=== PATIENT | female | born 1985 | race Caucasian/White ===

== ENCOUNTER 2024-09-24 09:29 | Emergency (ER) | payer BC, SELFPAY ==
[2024-09-24 09:45] VITALS: BP 127/91
[2024-09-24 10:22] VITALS: BMI 23.0
[2024-09-24 10:32] LABS: Urine Albumin Negative (Neg - Trace); Urine Bilirubin Negative (Negative); Urine Character Clear (Clear); Urine Color Yellow; Urine Glucose Negative (Negative); Urine Ketone Negative (Negative); Urine Leukocyte Trace (Negative); Urine Nitrite Negative (Negative); Urine Occult Blood 3+ (Negative); Urine Urobilinogen Negative (Neg - 1+)
[2024-09-24] MEDS: OMNIPAQUE 50 ML PO (10:42)
--- NOTE | 2024-09-24 10:43 | ED.GENMED ---
History of Present Illness
General
Chief Complaint: Abdominal Pain
Source: patient
Exam Limitations: none
Time Seen by Provider: 09/24/24 10:10
Nursing documentation reviewed up to this point in time: agreed with
History of Present Illness
History of Present Illness:
Patient is a 39-year-old female with history of kidney stones presenting to the emergency department for evaluation of abdominal pain. Patient reports a pressure type sensation in her left lower abdomen, near her bellybutton, that has been ongoing
for the past few weeks. However yesterday she began pressing on her lower abdomen and felt pain into her back. Patient does have a sensation that she may be constipated although she has been having bowel movements. Patient denies any associated
fever, chills, nausea, vomiting, dysuria, hematuria. No chest pain or shortness of breath patient is currently on her menstrual period.
She does have a history of both kidney stones and kidney infections�although states the symptoms feel different.
Patient did call urgent care and was instructed to come to the emergency department for CT scan.
Past History
Past History
ED Past Medical History: Other (Renal calculus, Migraine, PNA ,UTI, Lyme disease); Negative Asthma, HTN, Hypercholesterolemia or NIDDM
ED Past Surgical History: None and Urological (Renal stents)
Social History
Tobacco: Non-smoker
Alcohol: Occasional
Personal:
Living: with family
Employment: Employed
Family History
Family History: Hypertension
Review of Systems
Review of Systems
Allergies reviewed?: Yes
All Other Systems: ROS reviewed and negative except as documented in HPI and ROS
Phy Exam
Physical Exam
Physical Exam:
Vitals: Mild tachycardia, otherwise vital signs stable. Afebrile
General: Patient is well appearing, mildly anxious and tearful. Nontoxic appearing
Skin: Warm and dry, no rashes or lesions
Head: Normocephalic, atraumatic
Eyes: Sclera nonicteric. EOMs intact. No nystagmus.
Throat: Protecting airway
Neck: Normal ROM, no cervical spine tenderness, no meningismus
Cardiac: Regular rate and rhythm, no murmurs.
Pulm: Normal respiratory effort, no wheezes, rales, rhonchi heard on exam.
Abdomen: Abdomen soft. Mild abdominal pain in left lower quadrant and umbilical region. No rebound tenderness or guarding. No CVA tenderness
Extremities: No evidence of cyanosis or edema. Palpable DP pulses bilaterally
Neuro: AAOx3. Grossly intact.
Psychiatric: Normal affect.
Course
Orders/Labs/Results
Orders:
Orders
09/24/24 10:18
Urinalysis Reflex To Culture Urgent
Date Specimen was Collected: 09/24/24
Time Specimen was Collected: 10:06
Urine Microscopic Reflex Cult Urgent
Urine Culture Urgent
ALEJO Source: U
Specimen Description:
Date Specimen was Collected: 09/24/24
Time Specimen was Collected: 10:06
09/24/24 10:30
0.9% Sodium Chloride 1000 ml [Nss] 1,000 ml IV BOLUS
Iohexol [Omnipaque] See Protocol PO NOW STA
Ketorolac [Toradol] 15 mg IV NOW STA
09/24/24 10:31
CT Abd/pel W Iv And Oral Contr Urgent
Comment:
Reason For Exam: LLQ pain/ pain near umbilicus
09/24/24 10:43
Complete Blood Count/With Diff Urgent
Comprehensive Metabolic Panel Urgent
HCG, Serum Qualitative Screen Urgent
Comment: ADD
Lipase Urgent
09/24/24 10:49
Add On- LAB Urgent
Tests Added?: hcg qualitative
09/24/24 12:12
HYDROmorphone [Dilaudid] 0.5 mg IV NOW STA
09/24/24 12:13
Ondansetron Injectable [Zofran] 4 mg IV NOW STA
Abnormal Lab Results
09/24/24 09/24/24
10:18 10:43
RBC 4.17 L 10^6/uL
(4.20-5.40)
MCH 31.4 H pg
(27.0-31.0)
MCHC 32.3 L g/dL
(33.0-37.0)
MPV 12.6 H fL
(7.4-10.4)
Ur Occult Blood Reflex 3+ A
(Negative)
Leukocyte Esterase Rfl Trace A
(Negative)
Urine RBC 3-6 A /HPF
(0-2)
Urine Bacteria (Reflex) Moderate A
(Negative)
09/24/24 10:43
09/24/24 10:43
Vital Signs
Initial and Last Documented VS:
Initial Vital Signs
Temp Pulse Resp BP Pulse Ox
98.0 F 108 16 127/91 98
09/24/24 09:45 09/24/24 09:45 09/24/24 09:45 09/24/24 09:45 09/24/24 09:45
Last Documented Vital Signs
Temp Pulse Resp BP Pulse Ox
98.0 F 88 18 108/70 98
09/24/24 09:45 09/24/24 15:29 09/24/24 15:29 09/24/24 15:29 09/24/24 15:29
MDM/Problems Addressed
Differential Diagnosis Includes:
Not limited to: Cystitis, pyelonephritis, diverticulitis, constipation, appendicitis, nephrolithiasis, hernia, etc.
MDM/Problems Addressed:
39 year old female presenting with lower abdominal pain. No fever, vomiting, urinary symptoms. No chest pain or shortness of breath. Patient has stable vital signs. She is afebrile. Physical exam as above. Differential broad at this time although
considerations include kidney stone, diverticulitis, appendicitis, constipation, etc. Lower suspicion for pelvic etiology given location of pain. Exam not consistent with ovarian torsion. Will check basic labs, urinalysis, CT abdomen/pelvis. Will
treat pain.
Update: labs reviewed. No leukocytosis. Chemistry unremarkable. Lipase normal. negative. Urine with few RBCs likely secondary to menstrual cycle. No evidence of UTI. CT pending.
Chronic conditions affecting care:
N/A
Acute Exacerbation and/or Progression of Chronic Illness:
N/A
*Radiology
Radiology exam reviewed: preliminary read by ED provider and radiology read reviewed
*Pulse Oximetry
Patient hypoxic: no
*EKG
Interpreted by ED Provider?: NA
*[employer] Interpretation
Rate: [employer]- N/A
*Critical Care Note
Total Time (30-74mins, 75-104mins- exclusive of procedures): Not Applicable
Update Note
Update Note:
Update: CT report reviewed. No acute abnormalities. Small left ovarian cyst. No evidence of ovarian torsion. In to reassess patient who clinically appears improved. Abdomen is soft and nontender. Low suspicion for acute abdominal infection given
patient is afebrile with no leukocytosis and benign abdominal exam. Feel patient is stable for discharge home with close return precautions. Patient will f/u with PCP. Case discussed with attending physician.
ED Attending Note
-
Portions of this chart may have been created with voice recognition software.� Occasional wrong word or��sound alike� substitutions may have occurred due to the inherent limitations of voice recognition software.
Discharge Plan
Departure
Patient Disposition: Home (Routine Discharge)
Date of Disposition: 09/24/24
Time of Disposition: 15:11
Patient with high blood pressure during this ER visit?: No
Condition: Good
Covid-19: Not Applicable
Discharge Problem:
Abdominal pain
Instructions: Abdominal Pain, Adult ED
Prescriptions:
No Action
ibuprofen 600 MG tablet
600 mg PO Q4HPRN PRN (Reason: moderate pain/cramps) 0RF
ascorbic acid (vitamin C) [Vitamin C] 500 mg Tablet
500 mg PO DAILY
therapeutic multivitamin Liquid
5 ml PO DAILY
AZO Urinary Tract Defense 162-162.5 mg Tablet
1 tab PO DAILY
Referrals:
Mary Beth Katz, SUSAN [Family Provider] - Follow up in 5-7 days
Activity Restrictions/Additional Instructions:
RETURN TO THE EMERGENCY DEPARTMENT WITH ANY FEVERS, PERSISTENT/SEVERE ABDOMINAL PAIN, INTRACTABLE NAUSEA/VOMITING, LOSS OF APPETITE, WORSENING IN CURRENT SYMPTOMS, OR ANY OTHER CONCERNS
-As discussed�your CT scan showed no acute abnormalities today.
-It is important you stay well-hydrated. You can continue Tylenol/Motrin as needed for pain.
-Follow-up with your primary care in a few days for further evaluation and to ensure symptoms are improving. You can follow-up with your [employer], as well.
Monitor your symptoms closely and return to the emergency department with any acute worsening/new symptoms or any other concerns
Interventions
Interventions:
*Risk Screen - Suicide Last Done: 09/24/24 09:45
*General Assessment Last Done: 09/24/24 11:24
*Neglect/Abuse Screening Last Done: 09/24/24 09:45
ED- Fall Risk Assessment Last Done: 09/24/24 11:24
*ED COVID-19 Vaccine History Last Done: 09/24/24 11:24
*Nursing Disposition Last Done: 09/24/24 15:29
IK-Hzoqpt-[id number] Assessment Last Done: 09/24/24 10:58
Discharge Date and Time
Discharge Date/Time: 09/24/24 15:30
Print Language: CHINESE
[2024-09-24] MEDS: TORADOL 15 MG IV (10:50)
[2024-09-24] MEDS: NSS 1000 IV (10:51)
[2024-09-24 11:00] LABS: % Basophils 0.3 % (0-2); % Eosinophils 1.5 % (0-6); % Immature Granulocytes 0.2 % (0-0.5); % Lymphocytes 22.9 % (20.5-51.1); % Monocytes 6.2 % (1.7-9.3); % Neutrophils 68.9 % (42.2-75.2); Absolute Eosinophils 0.1 10^3/uL (0-0.7); Absolute Monocytes 0.6 10^3/uL (0.1-0.6); Absolute Neutrophils 6.1 10^3/uL (1.4-6.5); Hematocrit 40.5 % (37.0-47.0); Hemoglobin 13.1 g/dL (12.0-16.0); Mean Corp Hgb Conc. 32.3 g/dL (33.0-37.0); Mean Corpuscular Hgb 31.4 pg (27.0-31.0); Mean Corpuscular Volume 97.1 fL (81.0-99.0); Mean Platelet Volume 12.6 fL (7.4-10.4); Nucleated Red Blood Cells % 0 %; Platelet Count 264 10^3/uL (130-400); Red Blood Cell Count 4.17 10^6/uL (4.20-5.40); White Blood Cell Count 8.9 10^3/uL (4.8-10.8)
[2024-09-24 11:15] LABS: ALT (SGPT) 15 U/L (0-35); AST (SGOT) 18 U/L (14-36); Albumin 4.3 g/dl (3.5-5.0); Alkaline Phosphatase 64 U/L (38-126); Blood Urea Nitrogen 8 mg/dl (7-17); Calcium 9.2 mg/dl (8.4-10.2); Carbon Dioxide 25 mmol/L (22-30); Chloride 104 mmol/L (98-107); Estimated Creatinine Clearance 105 ml/min; Glucose 86 mg/dl (70-99); Lipase 63 U/L (23-300); Potassium 4.2 mmol/L (3.5-5.1); Sodium 139 mmol/L (135-145); Total Bilirubin 1.1 mg/dl (0.2-1.3); Total Protein 6.9 g/dl (6.3-8.2); eGFR > 60.00
[2024-09-24 11:31] LABS: HCG, Serum Qualitative Screen Negative
[2024-09-24 12:03] LABS: Urine Urothelial Cell 0-2 /LPF (FEW)
[2024-09-24 12:04] LABS: Urine Squamous Cell >30 /LPF (Few)
[2024-09-24 12:05] LABS: Urine Bacteria Moderate (Negative)
[2024-09-24] MEDS: ZOFRAN 4 MG IV (12:19)
[2024-09-24] MEDS: DILAUDID 0.5 MG IV (12:19)
[2024-09-24 12:22] VITALS: BP 110/72
[2024-09-24 15:29] VITALS: BP 108/70
== END 2024-09-24 15:30 | disposition home or self-care (01) ==
LOC: EMR 09:29
PROVIDERS: Physician Assistant; EMERGENCY PHYSICIAN Student in an Organized Health Care Education/Training Program; FAMILY PHYSICIAN Nurse Practitioner Family
DX: R10.30 Lower abdominal pain, unspecified (principal); N83.202 Unspecified ovarian cyst, left side; Z87.442 Personal history of urinary calculi
CPT/HCPCS: 96374; 96375; 96361; 99284; 74177; 80053; 81003; 81015; 83690; 84703; 85025; 87086; Q9967